=== PATIENT | female | born 1985 | race Caucasian/White ===

== ENCOUNTER 2023-07-20 08:34 | Emergency (ER) | payer OTHER, SELFPAY ==
--- NOTE | ~2023-07-20 | CT_ITS ---
EXAMINATION: CT brain wo con DATE: 07/20/2023 10:34 INDICATION: Head injury post fall TECHNIQUE: Computed tomography (CT) of the head was performed without intravenous contrast. Sagittal and coronal reconstructions were performed. The mA was adjusted according to patient size. Iterative reconstruction technique was employed. The dose-length product was 605.33 mGy-cm. COMPARISON: head CT dated 12/28/2015 FINDINGS: No fracture. No acute intracranial hemorrhage, acute infarction or abnormal extra axial fluid collect ion. Ventricles are normal and symmetric. No mass/mass effect. The orbits, paranasal sinuses and mast oid air cells are normal. IMPRESSION: 1. Normal head CT. No fracture or acute intracranial process. Reviewed, dictated and finalized at location A.
--- NOTE | ~2023-07-20 | XR_ITS ---
EXAMINATION: XR chest 2V DATE: 07/20/2023 10:38 INDICATION: Left flank pain. Fall down stairs. TECHNIQUE: Frontal and lateral views of the chest were obtained. COMPARISON: None. FINDINGS: There is mild atelectasis at left lung base. There is no pneumonia, pleural effusion, or pn eumothorax. The heart size is normal. IMPRESSION: 1. Mild atelectasis at left lung base. Reviewed, dictated and finalized at location A.
--- NOTE | ~2023-07-20 | CT_ITS ---
EXAMINATION: CT cervical spine wo con DATE: 07/20/2023 10:34 INDICATION: Head injury and back pain post fall TECHNIQUE: Computed tomography (CT) of the cervical spine was performed without intravenous contrast. Automated exposure control and iterative reconstruction technique were employed. The dose-length pro duct was 372.22 mGy-cm. COMPARISON: None FINDINGS: Mild reversal of the normal cervical lordosis. Vertebral body heights are normal. No acute fracture. Moderate to severe disc height loss at C4-C5 and C5-C6, moderate disc height loss at C3-C4 and mild d isc height loss at C2-C3. Multilevel disc bulges and posterior disc osteophyte complex result in mild central canal stenosis from C3-C4 through C6-C7. There is multilevel bilateral moderate to severe ce rvical uncovertebral osteoarthritis and mild to moderate facet osteoarthritis. This contributes to mi ld neural foraminal stenosis bilaterally at C4-C5 and C5-C6 and minimal at C3-C4. Likely benign 9 mm right thyroid nodule with coarse calcification. Cervical soft tissues are otherwise unremarkable. Stephon cified right apical nodule consistent with old granulomatous disease. IMPRESSION: 1. Moderate to severe cervical spondylosis. No acute osseous abnormality. Reviewed, dictated and finalized at location A.
--- NOTE | ~2023-07-20 | CT_ITS ---
EXAMINATION: CT thoracic lumbar wo con DATE: 07/20/2023 10:34 INDICATION: Back pain post fall TECHNIQUE: Computed tomography (CT) of the thoracic and lumbar spine was performed without intravenou s contrast. Automated exposure control and iterative reconstruction technique were employed. The dose -length product was 1088.29 mGy-cm. COMPARISON: None FINDINGS: Thoracic spine: Sagittal alignment is normal. 9 degrees upper thoracic levocurvature with chronic appearing mild righ t anterior vertebral body height loss at T3 and T4. Vertebral body heights are otherwise normal. Nond isplaced fracture across the base of the left transverse process of T11. No other fractures identifie d. Mild disc height loss at T3-T4 through T6-T7. Central canal is widely patent throughout. Multileve l moderate upper thoracic and mild lower thoracic facet osteoarthritis. This contributes to minimal t o mild neural foraminal stenosis mild bilaterally at T2-T3 through T5-T6. Paravertebral soft tissues are unremarkable. Mild dependent atelectasis in the bilateral lower lobes. Lumbar spine: 8 degree lumbar dextrocurvature. Sagittal alignment is normal. Vertebral body and disc heights are no rmal. No fracture. Mild disc bulges with minimal central canal stenosis at L3-L4 and L4-L5. Moderate bilateral facet osteoarthritis at L4-L5 with mild facet osteoarthritis throughout the remainder of th e lumbar spine. Mild neural foraminal stenosis on the left at L4-L5. Bilateral sacroiliac osteoarthri tis. Paravertebral soft tissues are unremarkable. IMPRESSION: 1. Nondisplaced sagittal oriented fracture across the base of the left transverse process of T11. No other acute osseous abnormality in the thoracic or lumbar spine. 2. Mild thoracic and lumbar spondylosis. Reviewed, dictated and finalized at location A. IMPRESSION: 1. Nondisplaced sagittal oriented fracture across the base of the left transver se process of T11. No other acute osseous abnormality in the thoracic or lumbar spine. 2. Mild thoracic and lumbar spondylosis.
[2023-07-20 08:43] VITALS: BP 116/89; PULSE 69; RESP 16; TEMP 36.8; O2SAT 100
--- NOTE | 2023-07-20 09:25 | ED.FALL ---
HPI - Fall General Chief Complaint: Fall Stated Complaint: fall Time Seen by Provider: 07/20/23 08:40 History of Present Illness HPI Narrative: 37-year-old female present to the emergency department for evaluation after having a ground level fall. Patient states she was walking down flight of steps that were concrete and were wet causing her to fall backward strike her head and then her back. Patient complains of neck pain and back pain. Patient also has left-sided flank pain. Patient declined any medications for pain control Related Data Allergies Allergy/AdvReac Type Severity Reaction Status Date / Time Penicillins Allergy Unknown Unknown Verified 07/20/23 08:35 Review of Systems Review of Systems: All systems reviewed & are unremarkable except as noted in HPI and below Exam Narrative: APPEARANCE: Well appearing, no pain, no distress, well-nourished. HEAD: normocephalic, atraumatic. EYES: PERRLA/EOMI, conjunctivae clear. NOSE: Normal no drainage EARS:TMS clear with good light reflex. THROAT: Pharynx clear, no exudate. NECK: Supple. No adenopathy, no masses. RESPIRATORY: Airway patent, respirations nonlabored. Clear to auscultation bilaterally, no rales, rhonchi, wheezing. CARDIOVASCULAR: Regular rate and rhythm without murmurs rubs or gallops. ABDOMINAL: Soft, nontender, nondistended, normal bowel sounds MUSCULOSKELETAL: Midline thoracic tenderness to palpation NEURO: Alert. Cranial nerves II through XII intact. SKIN: Warm, dry. Normal Color Course Vital Signs Vital signs: Vital Signs Temperature 98.3 F 07/20/23 08:43 Pulse Rate 69 07/20/23 08:43 Respiratory Rate 16 07/20/23 08:43 Blood Pressure 116/89 07/20/23 08:43 Pulse Oximetry 100 07/20/23 08:43 Temperature 98.6 F 07/20/23 11:51 Pulse Rate 74 07/20/23 11:51 Respiratory Rate 16 07/20/23 11:51 Blood Pressure 126/74 07/20/23 11:51 Pulse Oximetry 100 07/20/23 11:51 MDM - Fall MDM Narrative Medical decision making narrative: 37-year-old female presenting to the emergency department for evaluation of back pain after having a fall down some stairs. Head CT was negative cervical C-spine was was negative for acute fracture dislocation. Patient's thoracic CT showed a transverse process fracture of T11. Patient is neurologically intact was able to ambulate at baseline. Patient was updated the results of her workup. Patient did initially decline medications for pain control emergency department patient will be provided medications for pain control for home including [place] and Flexeril. Patient will be provided outpatient follow-up with Neurosurgery. All questions concerns were addressed. Differential Diagnosis Differential diagnosis: Likely other (Subarachnoid hemorrhage, subdural hematoma, cervical spine fracture, thoracic fracture, lumbar spine fracture, fractured rib, pneumonia, pneumothorax) Lab Data Labs: [facility] Bedside Result Negative Reference Range: Negative Imaging Data Radiologist's impression: Impressions Head CT 07/20/23 10:35 IMPRESSION: 1. Normal head CT. No fracture or acute intracranial process. Cervical Spine CT 07/20/23 10:38 IMPRESSION: 1. Moderate to severe cervical spondylosis. No acute osseous abnormality. Chest X-Ray 07/20/23 10:41 IMPRESSION: 1. Mild atelectasis at left lung base. Thoracic/Lumbar Spine CT 07/20/23 10:42 IMPRESSION: 1. Nondisplaced sagittal oriented fracture across the base of the left transverse process of T11. No other acute osseous abnormality in the thoracic or lumbar spine. 2. Mild thoracic and lumbar spondylosis. Discharge Plan Discharge Clinical Impression: Head injury, Fracture of transverse process of thoracic vertebra Patient Disposition: Home, Self-Care Condition: Stable Instructions: Antibiotic Form, Transverse Process Fracture
[2023-07-20 09:30] VITALS: BP 138/70; PULSE 70; RESP 16; TEMP 36.8; O2SAT 100
[2023-07-20 10:36] VITALS: BP 136/68; PULSE 74; RESP 16; TEMP 36.6; O2SAT 100
[2023-07-20 11:51] VITALS: BP 126/74; PULSE 74; RESP 16; TEMP 37; O2SAT 100
== END 2023-07-20 11:52 | disposition home or self-care (01) ==
PROVIDERS: Emergency Provider Emergency Medicine
DX: S09.90XA Unspecified injury of head, initial encounter (principal); S22.089A Unspecified fracture of T11-T12 vertebra, initial encounter for closed fracture; W10.9XXA Fall (on) (from) unspecified stairs and steps, initial encounter
CPT/HCPCS: 70450; 71046; 72125; 72128; 72131; 81025; 99284; L0140